=== PATIENT | female | born 1960 | race Caucasian/White ===

== ENCOUNTER → 2019-12-30 13:08 | Outpatient (CLI) | payer BC, SELFPAY ==
--- NOTE | ~2019-12-30 | DEXA_ITS ---
Bone Density Report Name: Pattie Horton Age: 59 Sex: Female Ethnicity: White Date of : 1960 Indication: postmenopausal; screening for osteoporosis; prior fracture; hysterectomy; Referring Provider: ALEXANDRE OAKES Study: Bone densitometry was performed. Exam Date: December 30, 2019 Accession number: [id number] Bone Density: Region BMD T-score Z-score Classification AP Spine (L1-L4) 0.799 -2.3 -0.7 Osteopenia Femoral Neck (Left) 0.719 -1.2 0.2 Osteopenia Total Hip (Left) 0.884 -0.5 0.6 Normal Femoral Neck (Right) 0.691 -1.4 -0.1 Osteopenia Total Hip (Right) 0.782 -1.3 -0.3 Osteopenia Total Hip Mean 0.833 -0.9 0.2 Normal World Health Organization criteria for BMD impression classify patients as: Normal (T-score at or above -1.0), Osteopenia (T-score between -1.0 and -2.5), or Osteoporosis (T-score at or below -2.5). 10-year Fracture Risk(1): Major Osteoporotic Fracture 14% Hip Fracture 1.2% Reported Risk Factors: [place] (), Neck BMD=0.691, BMI=25.4, previous fracture (1) FRAX(R) Version 3.08. Fracture probability calculated for an untreated patient. Fracture probability may be lower if the patient has received treatment. Clinical Information Provided by Patient: Has had a low trauma fracture Has used the following medications: Vitamin D Has the following medical conditions: Hysterectomy Patient maximum height was 70 Menopause Age: 45 Onset of menses at age 13 Number of children 4 Impression: The patient has low bone mass, based on the Total Spine T-score. The patient has an estimated ten-year risk of hip fracture of 1.2% and an estimated ten-year risk of major fracture of 14%, based on the WHO FRAX algorithm. The patient has risk factors, including: previous fracture. Discussion: BONE DENSITY IS LOW AT ONE OR MORE SKELETAL SITES. This patient's lowest T-score is low at one or more skeletal sites. It meets the World Health Organization's (WHO) criteria for ?low bone mass? (T-score between -1.0 and -2.5). The patient's 10-year risk of fracture as calculated by FRAX is less than the threshold where pharmacological therapy is recommended by the National Osteoporosis Foundation (NOF). However, all treatment decisions require clinical judgment and consideration of individual patient factors, including patient preferences, comorbidities, previous drug use, risk factors not captured in the FRAX model (e.g., frailty, falls, vitamin D deficiency, increased bone turnover, interval significant decline in bone density) and possible under or overestimation of fracture risk by FRAX. The patient should follow a healthful lifestyle (good nutrition with adequate calcium and vitamin D, and appropriate weight-bearing exercise). Follow-Up: Consider repeating this study in 2 to 3 years to reas
== END ==
PROVIDERS: PCP Family Medicine; Visit Provider Family Medicine
DX: Z78.0 Asymptomatic menopausal state (principal); M85.88 Other specified disorders of bone density and structure, other site; M85.852 Other specified disorders of bone density and structure, left thigh; M85.851 Other specified disorders of bone density and structure, right thigh
CPT/HCPCS: 77080

== ENCOUNTER → 2023-09-05 15:18 | Outpatient (CLI) | payer MEDICARE, OTHER, SELFPAY ==
--- NOTE | ~2023-09-05 | XR_ITS ---
EXAMINATION: XR foot LT min 3V DATE: 09/05/2023 15:34 INDICATION: Left foot pain and swelling. Fall. TECHNIQUE: 4 views of left foot were obtained. COMPARISON: None. FINDINGS: There is lateral subluxation of second metatarsal with respect to intermediate cuneiform, c onsistent with Lisfranc ligament tear. There is a displaced fracture of dorsal distal aspect of cuboi d. There is a nondisplaced fracture of base of fourth metatarsal. There is mild osteoarthritis of fir st metatarsophalangeal joint and some of the interphalangeal joints. IMPRESSION: 1. Lisfranc joint subluxation with fractures of cuboid and fourth metatarsal. Reviewed, dictated and finalized at location E. [employer] PROFESSION[employer]
== END ==
PROVIDERS: PCP Family Medicine; Visit Provider Family Medicine
DX: S92.342A Displaced fracture of fourth metatarsal bone, left foot, initial encounter for closed fracture (principal); W19.XXXA Unspecified fall, initial encounter
CPT/HCPCS: 73630

== ENCOUNTER → 2023-09-10 12:47 | Outpatient (CLI) | payer MEDICARE, OTHER, SELFPAY ==
--- NOTE | ~2023-09-10 | MR_ITS ---
EXAMINATION: MR foot LT wo con DATE: 09/10/2023 13:48 INDICATION: Tenderness at the tarsal bones with possible Lisfranc injury. TECHNIQUE: Magnetic resonance imaging (MRI) of the left fore/mid foot was performed without intraveno us contrast. Sequences included sagittal T1-weighted FSE, sagittal fluid sensitive FSE STIR, coronal PD-weighted FS FSE, coronal T1-weighted FSE, axial PD-weighted FS FSE, and axial PD-weighted FSE. COMPARISON: Radiograph dated 09/05/2023 FINDINGS: There is a tear of the dorsal and plantar components of the Lisfranc ligament complex. There is assoc iated small nondisplaced avulsion fracture along the medial cuneiform footplate of the dorsal compone nt of the ligament. There are some mild marrow edema without discrete fracture likely representing a bone contusion along the lateral margin of the base of the first metatarsal. There are additional non displaced intra-articular fractures at the bases of the third and fourth metatarsals along the dorsal margin of the distal articular surface of the middle cuneiform and extending across the lateral cune iform deep to the articular cortex. Additional marrow edema without definitive fracture consistent wi th bone contusion along the dorsolateral margin of the distal articular surface of the cuboid. Bone a lignment remains near-anatomic with no significant subluxation at the tarsal metatarsal joints. Visua lized portions of the flexor and extensor tendons are normal. The collateral ligament complex at the metatarsophalangeal and interphalangeal joints are normal. There is subcutaneous edema extending over the dorsum of the forefoot. Mild osteoarthritis of the first metatarsophalangeal joint and a few of the interphalangeal joints. IMPRESSION: 1. Lisfranc injury with disruption of the dorsal plantar components of the Lisfranc ligament complex and bone contusions or nondisplaced fractures involving several of the tarsal bones in to the base of the metatarsals as detailed above. Alignment remains near-anatomic. Reviewed, dictated and finalized at location A. T SORTER IMPRESSION: 1. Lisfranc injury with disruption of the dorsal plantar components of the Lisf ranc ligament complex and bone contusions or nondisplaced fractures involving s everal of the tarsal bones in to the base of the metatarsals as detailed above. Alignment remains near-anatomic.
== END ==
PROVIDERS: Visit Provider Family Medicine
DX: S93.325A Dislocation of tarsometatarsal joint of left foot, initial encounter (principal)
CPT/HCPCS: 73718

== ENCOUNTER 2025-03-16 12:03 | Outpatient (CLI) | payer MEDICARE, SELFPAY ==
--- NOTE | ~2025-03-16 | MM_ITS ---
EXAMINATION: MM screening karina BI w melisa HISTORY: Screening TECHNIQUE: Craniocaudal and mediolateral oblique 3-D tomosynthesis images were obtained and synthetic 2-D images were generated. CAD analysis was submitted and interpreted. COMPARISON: 12/01/2011 BREAST PARENCHYMAL COMPOSITION: Not dense: There are scattered areas of fibroglandular density. FINDINGS: There is no evidence of suspicious mass, calcification, or architectural distortion to sugg est malignancy in either breast. There has been no suspicious interval change. IMPRESSION: 1. No mammographic evidence of malignancy. 2. Recommend routine screening mammography in one year. BI-RADS Category 1: Negative Reviewed, dictated and finalized at location B.
--- OUTSIDE RECORDS SUMMARY | 2025-03-16 12:12 | XMS_ITS | Clinical Summary ---
Author Organization [facility] Address [address] [place] [address] Care Team Providers Care Doll Wigs Hackler Name Role Phone Neelima Zaman MD Primary Care Provider [phone] Source Comments [facility],non-owned Affiliates and Associated Physician Practices is amultiple site organization consisting of ambulatory clinics and hospital sitesin [place], [place], [place] and [place]. This disclosure is being madepursuant to the Care Everywhere program and may not contain all information available regarding this patient. Last updated 18.[facility] Allergies No known active allergies Medications * Be aware that medications may not be up to date on this document. Alwaysverify current medications with the patient. RESTASIS 0.05 % ophthalmic suspension 9 Active levothyroxine (SYNTHROID) 75 MCG tablet 9 Active spironolactone (ALDACTONE) 50 MG tablet 0 Active erenumab-aooe (AIMOVIG) 140 MG/ML auto injector pen Inject 140 mg subcutaneously 9 Active Aloe Vera 25 MG takign once a day Ac tive vitamin D, ergocalciferol , (DRISDOL) 1.25 MG (61832 UT) capsule TK ONE C PO ONCE A WK 8 Active pyridostigmine (MESTINON) 60 MG tablet TAKE 1 TABLET BY MOUTH THREE TIMES DAILY. START WITH 1 TABLET A DAY TO EVALUATE GI SYMPTOMS. 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 (F LUZONE; FLULAVAL; FLUARIX; AFLURIA QUADRIVALENT; 6MO+), 0.5 ML (IIV4) 08/04/2019,08/01/2018 Zoster Hzv Vacc Recombinant Inj Im 06/13/2019, Family History Medical History Relation Name Comments Cancer - Lung Mother Multiple Sclerosis Sister Relation Name Status Comments Mother Sister Social History Tobacco Use Types Packs/Day Years Used Date Smoking Tobacco: Never Smokeless Tobacco: Never Alcohol Use Standard Drinks/Week Comments Yes 0 (1 standard drink = 0.6 oz pur e alcohol) AUDIT-C Answer Date Recorded Frequency of Alcohol Consumption 2-3 times a wee k 12/16/2019 Average Number of Drinks 1 or 2 020 Frequency of Binge Drinking Not on file 11/29 Comments Unknown Sex and Gender Information Value Date Recorded Sex Assigned at Not on file Legal Sex Female 7:35 PM CORN GRINDER Gender Identity Not on file Sexual Orientation Not on file Last Filed Vital Signs Vital Sign Reading Time Taken Comments Blood Pressure 118/69 12/23/2019 3:06 PM CORN GRINDER Pulse 64 12/23/2019 3:06 PM CORN GRINDER Temperature - - Respiratory Rate - - Oxygen Saturation 96% 12/23/2019 3:06 PM CORN GRINDER Inhaled Oxygen Concentration - - Weight 79.4 kg (175 lb 1.9 oz) 12/23/2019 3:06 P M CORN GRINDER Height 177.8 cm (5' 10 ) 12/23/2019 3:06 PM CORN GRINDER Body Mass Index 25.13 12/23/2019 3:06 PM CORN GRINDER Plan of Treatment Health Maintenance Due Date Last Done Comments BONE DENSITY TESTING 1960 COLOGUARD (AGES 45-75) - COLON CA SCREENING 1960 COLON MONITORING 1960 COLONOSCOPY - COLON CA SCREENING 1960 CT COLONOGRAPHY - COLON CA SCREENING 1960 Colorectal Cancer Screening 1960 FIT - COLON CA SCREENING 1960 FLEX SIG - COLON CA SCREENING 1960 LIPID TESTING 1960 MAMMOGRAM 1960 HEPATITIS C SCREENING 06/04/1976 DTAP/TDAP/TD VACCINES (1 - Tdap) 1977 PNEUMOCOCCAL VACCINE 50+ (1 of 1 - PCV) 2008 SCREENING FOR DIABETES 12/23/2019 COVID-19 VACCINE (1 - season) 2024 DEPRESSION SCREENING 10/29/2024 INFLUENZA VACCINE (Season Ended) 2025 08/04/2019, 08/04/2019, 08/01/2018, Additional history exists Respiratory Syncytial Virus (RSV) Vaccine Pt: or over 60 yrs (1 - 1-dose 75+ series) 2033 ZOSTER VACCINE Completed 06/13/2019, 04/04/2019 HEPATITIS B VACCINE Aged Out No longe r eligible based on patient's age to complete this topic HIB VACCINE Aged Out No longer eligi ble based on patient's age to complete this topic HPV VACCINE Aged Out No longer eligi ble based on patient's age to complete this topic MENINGOCOCCAL (Group B) VACCINE SHARED DECISION-MAKING Aged Out No longer eligible based on patient's age to complete this topic MENINGOCOCCAL GROUPS A/C/Y/W VACCINE Aged Out No longer eligible based on patient's age to complete this topic Insurance ANTH ANTHEM Care Teams Doll Wigs Hackler Relationship Specialty Start Date End Date Neelima Zaman MD [address] [place] [address] PCP - General 12/23/19
--- OUTSIDE RECORDS SUMMARY | 2025-03-16 12:12 | XMS_ITS | Clinical Summary ---
Author Organization [facility] Address [address] [place] [id number] Care Team Providers Care Welt Beater Name Role Phone None, Provider MD Primary Care Provider Unavaila ble Allergies No known active allergies Medications No known medications Social History Tobacco Use Types Packs/Day Years Used Date Smoking Tobacco: Never Smokeless Tobacco: Never Tobacco Cessation:Counseling Given: Not Answered Alcohol Use Standard Drinks/Week Comments Yes 3.3 (1 standard drink = 0.6 oz p ure alcohol) Comments Unknown Sex and Gender Information Value Date Recorded Sex Assigned at Not on file Legal Sex Female 2:29 PM CDT Gender Identity Not on file Sexual Orientation Not on file Last Filed Vital Signs Vital Sign Reading Time Taken Comments Blood Pressure 106/73 08/31/2023 2:35 PM CDT Pulse 81 08/31/2023 2:35 PM CDT Temperature 36.6 C (97.8 F) 08/31/2023 2:35 PM CDT Respiratory Rate 18 08/31/2023 2:35 PM CDT Oxygen Saturation 100% 08/31/2023 2:35 PM CDT Inhaled Oxygen Concentration - - Weight 81.6 kg (180 lb) 08/31/2023 2:35 PM CDT Height 180.3 cm (5' 11 ) 08/31/2023 2:35 PM CDT Body Mass Index 25.1 08/31/2023 2:35 PM CDT Plan of Treatment Health Maintenance Due Date Last Done Comments Colorectal Cancer Screening Colonoscopy (10 Years) 1960 Hepatitis C 1976 DTaP, Tdap and Td Vaccines (1 - Tdap) 1977 Mammogram Screening 1998 Annual Medicare Wellness Visit 2023 Dexa Scan (General) 2023 COVID-19 Vaccine ( season) 2024 06/20/2023, 07/05/2022, 03/14/2022, Additional history exists Zoster Vaccines Completed 06/13/2019, 04/04/2019 Pneumococcal Vaccine: 50+ Years Completed 06/20/2023 RSV Immunization or 60+ Years Completed 06/20/2023 Meningococcal B Vaccine Aged Out No l onger eligible based on patient's age to complete this topic Meningococcal Vaccine Aged Out No mikel ander eligible based on patient's age to complete this topic RSV Immunizations Under 20 Months Aged Out No longer eligible based on patient's age to complete this topic Insurance MEDICARE AET Care Teams Welt Beater Relationship Specialty Start Date End Date None, Provider, MD PCP - General UNKNOWN PHYSICIAN SPECIALTY 08/31/23
--- OUTSIDE RECORDS SUMMARY | 2025-03-16 12:12 | XMS_ITS | Encounter Summary ---
Author Organization [facility] Address [address] [place] [address] Phone Care Team Providers Care Runway Model Name Role Phone Neelima Zaman MD Primary Care Provider + Davie Mendoza MD Unavailable [phone] Encounter Details Date Type Department Care Team (Latest Contact Info) Description 12/30/2019 Orders Only [facility] Scanning, Provider Social History Tobacco Use Types Packs/Day Years Used Date Smoking Tobacco: Never Smokeless Tobacco: Never Alcohol Use Standard Drinks/Week Comments No 0 (1 standard drink = 0.6 oz pur e alcohol) Comments Unknown Sex and Gender Information Value Date Recorded Sex Assigned at Not on file Legal Sex Female 6:40 AM TELEPATHIST Gender Identity Not on file Sexual Orientation Not on file 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 Not on file Not on file Not on file documented as of this encounter Plan of Treatment Not on file documented as of this encounter Procedures Procedure Name Priority Date/Time Associated Diagnosis Comments SCAN - RADIOLOGY/IMAGING 12/30/2019 documented in this encounter Results * SCAN - RADIOLOGY/IMAGING (12/30/2019) Anatomical Region Laterality Modality Other us Provider Scanning Final Result documented in this encounter Visit Diagnoses Not on filedocumented in this encounter Additional Health Concerns Infection Onset Date Last Indicated Resolved Time Exposure, COVID-19 Comment:Added automatically based on COVID19 lab answers indicating exposure risk 04/05/2022 04/05/2022 04/15/2022 3:06 AM C DT COVID: Suspected 04/05/2022 04/05/2022 04/05/2022 3:43 PM CDT documented as of this encounter Care Teams Runway Model Relationship Specialty Start Date End Date Neelima Zaman MD PCP - General 09/25/17 Davie Mendoza MD Surgeon Ophthalmology 09/01/20 documented as of this encounter
--- OUTSIDE RECORDS SUMMARY | 2025-03-16 12:12 | XMS_ITS | Encounter Summary ---
Author Organization [facility] Address [address] [place] [address] Care Team Providers Care Rayon Winder Name Role Phone Neelima Zaman MD Primary Care Provider [phone] Encounter Details Date Type Department Care Team (Late st Contact Info) Description 12/25/2019 Telephone [facility] [address] [place] [address] Vy Jolley MD No information available Social History Tobacco Use Types Packs/Day Years [...] on file Legal Sex Female 7:35 PM RESIDENT SURGEON Gender Identity Not on file Sexual Orientation Not on file documented as of this encounter Miscellaneous Notes * Telephone Encounter - Vy Jolley MD - 12/25/2019 8:49 AM CST Spoke with patient about negative antibody testing. She will see Dr Maharaj for EMG Vy Jolley MD DENT SURGEON documented in this encounter Plan of Treatment Not on file documented as of this encounter Visit Diagnoses Not on filedocumented in this encounter Care Teams Rayon Winder Relationship Specialty Start Date End Date Neelima Zaman MD [address] [place] [id number] PCP - General 12/23/19 documented as of this encounter
--- OUTSIDE RECORDS SUMMARY | 2025-03-16 12:12 | XMS_ITS | Clinical Summary ---
Author Organization [facility] Address [address] [place] [address] Care Team Providers Care Administrative Intern Name Role Phone Neelima Zaman MD Primary Care Provider + Davie Mendoza MD Unavailable [phone] Allergies Active Allergy Reactions Criticality Noted Date Comments Codeine Headache,Nausea only Low Medications aloe vera 25 mg capsuleIndication s:constipation/nair pplement Take 25 mg by mouth every morning Active turmeric root extract 500 mg capsuleIndication s:supplement Take 2 tablets by mouth every morning Stopped 09/10 for DOS 09/14 Active UNABLE TO FIND Take 3 each by mouth regulatory attorney before breakfast Congaplex ; stopped 09/10 for surgery Active ferrous sulfate elixir 220 mg/5 mL (44 mg/5 mL of elemental iron)Indications: Iron Deficiency Anemia Take 5 mL (220 mg total) by mouth every morning Active cholecalciferol (Vitamin D3) 2000 unit capsuleIndication s:Vitamin D Deficiency Take 1 capsule (2,000 Units total) by mouth every morning Active aspirin 325 mg enteric coated tablet Take 1 tablet (325 mg total) by mouth daily Post operatively for DVT prophylaxis 30 tablet 023 Active acetaminophen (TYLENOL) 500 mg tablet Take 2 tablets (1,000 mg total) by mouth every 8 (eight) hours as needed for pain 60 tablet 023 Active indomethacin (INDOCIN) 25 mg capsuleIndication s:Intractable chronic migraine with aura and without status migrainosus 1-2 caps by mouth every 8 hrs as needed for migraine. Take with food. 180 capsule 1 024 Active bimatoprost (LATISSE) 0.03 % ophthalmic solution APPLY 1 DROP TO UPPER EYELID MARGIN EVERY DAY Active UNABLE TO FIND Biost Made by Standard Process Calcifood Made by Standard Process Active Restasis 0.05 % ophthalmic emulsion INSTILL 1 DROP INTO BOTH EYES IN THE MORNING 90 mL 3 Active BUPROPION HCL ORAL Take by mouth Active naltrexone HCl (NALTREXONE ORAL) Take by mouth Active metFORMIN (GLUCOPHAGE) 500 mg tablet Take 1 tablet (500 mg total) by mouth daily Active atogepant (Qulipta) 60 mg tabletIndications :Intractable chronic migraine with aura and without status migrainosus Take 1 tablet by mouth daily 90 tablet 1 025 Active ubrogepant (Ubrelvy) 100 mg tabletIndications :Intractable chronic migraine with aura and without status migrainosus Take 1 tablet (100 mg total) by mouth once as needed for migraine May repeat dose once in 2 hours if no relief. Do not exceed 2 doses in 24 hours. 30 tablet 1 025 2025 Active Synthroid 88 mcg tabletIndications :Postablative hypothyroidism TAKE 1 TABLET BY MOUTH EARLY IN THE MORNING BEFORE BREAKFAST 100 tablet 1 025 Active Synthroid 88 mcg tabletIndications :Postablative hypothyroidism Take 1 tablet (88 mcg total) by mouth regulatory attorney before breakfast 90 tablet 1 025 2024 Discontinued Active Problems Problem Noted Date Diagnosed Date Age-related osteoporosis wit hout current pathological fracture 04/03/2024 Dislocation of tarsometatarsal joint of left angelica t 09/10/2023 Nuclear sclerotic cataract of both eyes 01/19/20 Assessment & Plan (05/04/2023 11:02 AM CDT): Stable. Observe. Assessment & Plan (01/18/2023 8:38 AM CDT): Mild. Stable. Observe. PVD (posterior vitreous detachment), right eye 0 11/22/2022 Assessment & Plan (05/04/2023 11:02 AM CDT): Repeat DFE annually. Assessment & Plan (01/18/2023 8:38 AM CDT): No retinal holes/tears/RDs x 360 on MANAGER OF HOUSEKEEPING today. The signs and symptoms of retinal detachment were reviewed. Advised urgent evaluation with any onset. F/u annually., sooner prn. Assessment & Plan (11/22/2022 3:31 PM LABEL MAKER): New PVD OD, symptoms started 1 week ago. No retinal holes/tears/RDs x 360 on MANAGER OF HOU[employer] today. The signs and symptoms of retinal detachment were reviewed. Advised urgent evaluation with any onset. F/u DFE in 6-8 weeks. Diagnostic refraction prior to DFE that day. Weight gain 09/17/2022 Assessment & Plan (09/17/2022 10:41 AM LABEL MAKER): Assess TSH as above. Check 1 mg ONDST to r/o Kirsten's. Recommend calorie tracking - aim for 1200 kcal per day. 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 MG and Graves' Dz ruled out in the past. F/u annually, sooner prn. Assessment & Plan (04/27/2022 3:11 PM CDT): Subjective improvement with an additional 1^ BU over right eye. Update SRx to reflect this. MG and Graves ruled out in the past. Secondary SRx for near work. F/u annually, sooner prn. Assessment & Plan (07/15/2020 5:37 PM CDT): Subjective improvement with 0.5^. History of Graves disease. Assessment & Plan (01/05/2020 2:35 PM CDT): Presentation is somewhat unusual for Graves' eye disease, however, will check TSI and refer to Dr. Mendoza for further evaluation. Hypertropia of left eye 12/16/2019 Assessment & Plan (01/18/2023 8:38 AM CDT): Stable. Observe. Assessment & Plan (04/27/2022 3:10 PM CDT): Stable. Observe. Ptosis of right eyelid 08/04/2019 Varicose veins of bilateral lower extremities wi th pain 06/24/2019 Assessment & Plan (09/19/2019 1:56 PM LABEL MAKER): Impression: Patient continues do well status post EVLT of her right great saphenous vein and right accessory vein. Her surgical wounds have healed well. She has minimal residual ecchymosis and edema. She still has painful varicosities to her left lower extremity despite utilizing compression therapy daily. Her varicosities are very disruptive and painful and limit her and her daily activities. She would benefit from a EVLT of her left lower extremity with stab phlebectomies. Plan: Schedule left lower extremity EVLT with stab phlebectomy to be performed over the next 1-2 months. Recommend ongoing compression therapy daily. Assessment & Plan (07/07/2019 2:24 PM CDT): Impression: Worsening painful varicose veins to both lower extremities right greater than left. Patient has history of bilateral lower extremity ablations and sclerotherapy. She has failed conservative measures including daily compression therapy. Patient would benefit from bilateral staged great saphenous vein endovenous laser ablation therapy beginning with her right leg. The procedure and associated risks were discussed with the patient in detail in which he acknowledged and agreed to proceed. Plan: Schedule elective staged bilateral great saphenous veins endovenous laser ablation therapy with stab phlebectomies beginning with her right leg. Assessment & Plan (06/24/2019 1:53 PM CDT): 59-year-old male with longstanding history of painful varicose veins of the bilateral lower extremity right leg being worse than the left. She has tried and failed for many years knee-high compression therapy 20 30 mm of mercury with now minimal to no relief. Suspect underlying venous insufficiency will evaluate with reflux duplex follow-up 2 weeks. Continue compression therapy and leg elevation and exercise Postablative hypothyroidism 10/30/2018 Assessment & Plan (03/28/2023 4:54 PM CDT): Reassess TSH today very slightly low but has previously been normal on same dose. Repeat in 3 months. Assessment & Plan (09/17/2022 10:40 AM LABEL MAKER): Continue Levothyroxine 88 mcg. Recheck TSH in setting of weight gain. Assessment & Plan (07/07/2020 3:39 PM CDT): Etiology secondary to Grave's disease status-post RAIA (20.8 mCi of I-131 on 05/30/2018). Reports some active symptoms: fatigue, inability to lose weight (no recent weight gain) Thyroid exam shows no enlargement, masses, nodules, or tenderness Physical exam shows no bradycardia, non-pitting edema, or delayed relaxation of tendon reflexes No evidence of hyponatremia on recent basic metabolic panel Latest TSH 0.68 (12/31/2019) Antibodies: TSI positive Recommendations: Continue Levothyroxine 88 mcg qAM (60 min before first meal); avoid other medications inhibiting absorption Repeat thyroid function studies (TSH and Free T4) annually Assessment & Plan (01/05/2020 2:34 PM CDT): She is clinically and biochemically euthyroid. Continue levothyroxine 88 mcg daily. Assessment & Plan (10/30/2018 11:04 PM LABEL MAKER): She is on 75 mcg 5 days per week (when started on daily dosing, she was hyperthyroid). She is now frankly hypothyroid. Will have her start taking levothyroxine 75 mcg daily and recheck levels in 6 weeks. Intractable chronic migraine with aura and without status migrainosus 10/30/2018 Assessment & Plan (10/30/2018 10:58 PM LABEL MAKER): She notes that she has had headaches for many years, but feels they are now more frequent. They had improved after sinus surgery in the past. There are some associated migraine symptoms though worsening while recumbent is not typical of this. She does not have significant risk factors for sleep apnea. I have referred her to Dr. Ernst for further evaluation. Graves disease 04/26/2018 Hyperparathyroidism 09/06/2017 Assessment & Plan (03/28/2023 4:54 PM CDT): Reassess PTH, calcium and 25 OHD level today. PTH elevated, calcium upper normal, phosphorus slightly low. Possible early normocalcemic primary hyperparathyroidism. Does not currently meet surgical criteria. Assessment & Plan (09/17/2022 10:40 AM LABEL MAKER): Reassess calcium, PTH. Assessment & Plan (04/26/2018 10:12 PM CDT): Her renal function and 25OHD levels are WNL. Her total calcium is normal, but ionized is elevated. 24 hour urine calcium at the upper limit of normal. Will monitor serum calcium and confirm osteoporosis. Low bone mass 09/05/2017 Assessment & Plan (03/28/2023 4:42 PM CDT): Will repeat DEXA next year to determine liner roll changer time. If need to restart bisphosphonate, would recommend reclast. Assessment & Plan (09/17/2022 10:41 AM LABEL MAKER): Repeat DXA. Assessment & Plan (07/07/2020 3:47 PM CDT): Post-menopausal 60 year-old female with osteopenia on DEXA (12/30/2019) with FRAX score <3% hip or <20% major Intolerant to bisphosphonates (severe nausea), normal 25-hydroxyvitamin D level, elevated calcium and PTH in past with concern for possible primary hyperparathyroidism (negative work-up) Plan: 1) Check PTH and renal function 2) Repeat DEXA scan every 2 years Assessment & Plan (01/05/2020 2:43 PM CDT): FRAX score not in range for anti-resorptive therapy. Patient has also had bisphosphonates in the past with bad reaction. Continue Calcium/D. 25OHD in good range. Monitor for primary hyperparathyroidism. Her PTH is upper limit of normal and calcium is 0.1 above normal range. Assessment & Plan (04/26/2018 9:58 PM CDT): Will try to get records of DXA and address other alternatives to oral bisphosphonates for treatment. Will treat hyperthyroidism and hyperparathyroidism. Resolved Problems Problem Noted Date Diagnosed Date Resolved Date Ptosis of left eyelid 07/29/20202022 Assessment & Plan (04/27/2022 3:10 PM CDT): S/p ptosis repair by Dr. Mendoza. Observe. Hyperthyroidism 04/26/2018 10/30/2018 Assessment & Plan (04/26/2018 10:11 PM CDT): Will refer for ESCOBEDO ablation after confirming there are no nodules requiring biopsy with thyroid US. Will also use neck US to assess for parathyroid adenoma given possibility of mild primary hyperparathyroidism. If parathyroid adenoma seen, would discuss thyroidectomy and parathyroidectomy with endocrine surgery in lieu of ESCOBEDO. She will stop methimazole 3 days prior to ESCOBEDO. After ESCOBEDO, will check FT4, FT3, TSH monthly to assess for hypothyroidism and then begin LT4. Encounters Date Type Department Care Team Description 02/26/2025 Orders Only [facility] [address] [facility] 5th [place] [address] [place] [address] Elie Banda RN Postablative hypothyroidism (Primary Dx); Low bone mass; Hyperparathyroidism; Fatigue, unspecified type 12/22/2024 Telephone [facility] [address] [place] [address] Tammy Blount PA Ubrelbob MENDEZ from Last 3 Months Immunizations Immunization Administration Dates Next Due Influenza, Quadrivalent, Spl it, Preservative Free, Intramuscular 08/04/2019,08/01/2018 Influenza, Trivalent, Preservative Free, Intramu scular 09/05/2017,09/11/2016 ZOSTER Recombinant 06/13/2019,04/04/2019 Surgical History Surgery Date Site/Laterality Comments HYSTERECTOMY 10/29/2004 - 10/28/2005 Total Hysterectomy - (Added by TW Conv) INCONTINENCE SURGERY 10/29/2004 - 10/28/2005 TONSILLECTOMY 10/29/1973 - 10/28/1974 Bilateral APPENDECTOMY 10/29/1973 - 10/28/1974 SINUS SURGERY 10/29/2017 - 10/28/2018 VARICOSE VEIN SURGERY 08/15/2019 Right EVLT VARICOSE VEIN SURGERY 10/17/2019 Left gsv, accessory gsv, phlebs LASIK 10/29/1999 - 10/28/2000 Bilateral BLEPHAROPTOSIS REPAIR 10/29/2018 - 10/28/2019 Right BLEPHAROPTOSIS REPAIR 09/01/2020 Left Left ptosis repair ANGIO SELECTIVE CAROTID BUSINESS RULES DEVELOPER LEFT 10/11/2021 Left DILATION AND CURETTAGE OF UTERUS 10/29/2001 - 10/28/2002 multiple COLONOSCOPY 2007 & 2017 CERVICAL CONIZATION W/ LASER mid Medical History Medical History Date Comments Hyperthyroidism Bleeding tendency denies known b leeding disorders. reports bleed a lot after in office mole removal- denies excessive bleeding with past surgeries. Thyroid disease Arthritis History of cervical dysplasia h/ o Cervical dysplasia s/p cervical conization mid Migraines Sleep difficulties Family History Medical History Relation Name Comments Arthritis Brother 1 Don Multiple sclerosis Brother 1 Don Arthritis Brother 2 Leonardo Hypertension Brother 2 Leonardo Osteoarthritis Brother 2 Leonardo Sleep apnea Brother 2 Leonardo Autoimmune disease Brother 3 Keith Arthritis Father Aki Cancer Father Aki Family history of malignant neoplasm - father:leukemia; sister: breast cancer (Added by TW Conv) Heart disease Father Aki Family history of cardiac disorder - (Added by TW Conv) Hypertension Father Aki Family history of hypertension - (Added by TW Conv) Osteoarthritis Father Aki Snoring Father Aki Anesthesia problems Mother Rahel Per pt, h/o delayed emergence after magdy Hearing loss Mother Rahel Hyperlipidemia Mother Rahel Family histor y of hyperlipidemia - (Added by TW Conv) Hypertension Mother Rahel Family history of hypertension - (Added by TW Conv) Memory loss Mother Rahel Miscarriages / Stillbirths Mother Rahel Stroke Mother Rahel Family history of cerebrovascular accident (CVA) - (Added by TW Conv) Vision loss Mother Rahel Migraines Other daughter Hypertension Sister 1 Fatuma Family history of hypertension - (Added by TW Conv) Snoring Sister 1 Fatuma Autoimmune disease Sister 2 Suse Cancer Sister 2 Susradha Family history of malignant neoplasm - father:leukemia; sister: breast cancer (Added by TW Conv) Miscarriages / Stillbirths Sister 3 Sara Relation Name Status Comments Brother 1 Don Brother 2 Leonardo Brother 3 Keith Father Aki Mother Rahel Other daughter Sister 1 Fatuma Sister 2 Ottoniel Sister 3 Sara Social History Tobacco Use Types Packs/Day Years Used Date Smoking Tobacco: Never Smokeless Tobacco: Never Tobacco Cessation:Counseling Given: Not Answered Alcohol Use Standard Drinks/Week Comments Yes 0 (1 standard drink = 0.6 oz pur e alcohol) 5 drinks per week AUDIT-C Answer Date Recorded Q1: How often do you have a drink containing alc ohol? 2-3 times a week 07/08/2024 Q2: How many drinks containi ng alcohol do you have on a typical day when you are drinking? 1 or 2 07/08/2024 Q3: How often do you have si x or more drinks on one occasion? Never 07/08/2024 Hunger Vital Sign Answer Date Recorded Within the past 12 months, y ou worried that your food would run out before you got the money to buy more. Never true 07/08/20 24 Within the past 12 months, t he food you bought just didn't last and you didn't have money to get more. Never true 07/08/2024 Personal Safety Answer Date Recorded Have you ever been in or are you currently in a harmful physical or emotional relationship or is someone making you feel afraid or unsafe? 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 Not on file Not on file Obstetrics History Last Filed Vital Signs Vital Sign Reading Time Taken Comments Blood Pressure 103/63 09/29/2024 1:06 PM LABEL MAKER Pulse 85 09/29/2024 1:06 PM LABEL MAKER Temperature 36.3 C (97.4 F) 09/29/2024 1:06 PM LABEL MAKER Respiratory Rate 14 07/08/2024 7:47 AM CDT Oxygen Saturation 96% 09/29/2024 1:06 PM LABEL MAKER Inhaled Oxygen Concentration - - Weight 87.8 kg (193 lb 8 oz) 09/29/2024 1:06 PM LABEL MAKER Height 177.8 cm (5' 10 ) 09/29/2024 1:06 PM LABEL MAKER Body Mass Index 27.76 09/29/2024 1:06 PM LABEL MAKER Plan of Treatment Health Maintenance Due Date Last Done Comments Breast Cancer Screening-Mammogram 1960 Colon Cancer Screening-Colonoscopy 1960 Depression Screening 1960 Hepatitis C Screening 1960 DTaP/Tdap/Td Vaccine (1 - Tdap) 1969 Hepatitis B Screening 1976 Pneumococcal vaccine 65+ (1 of 1 - PCV) 2008 Well Visit 65+ 2023 Fall Risk Assessment 09/14/2024 09/14/2023, 10/03/20 21 Influenza Vaccine (Season Ended) 2025 08/04/2019, 08/01/2018, 09/05/2017, Additional history exists Osteoporosis Screening-Bone Density Scan 03/18/2026 03/18/2024, 10/02/2022 Zoster Vaccine Completed 06/13/2019, 04/04/2019 Goals Goal Patient Goal Type Associated Problems Recent Progress Patient-Stated? Author CCM Chronic Pain Care Plan Chronic Care Management Pattie Watters, JOHN Note: Problem: Chronic Pain Goals: 1. Minimize further functional decline 2. Maximize quality of life 3. Control pain Strategies: - Activity/exercise program recommendation - Conservative stepwise pain medicine strategy with multi-disciplinary approach - Recommend healthy lifestyle strategies and compensatory methods as needed Medical Devices Implanted Type Area Doctor Of Osteopathy Device Identifier Shelf Expiration Date Model / Serial / Lot [employer] Graft Bone Filler Cortical Cancellous Cyro Freezer Arthrocell 2.5cc Putty Abs-2009-02 - [id number] Implanted:Qty: 1 on 09/14/2023 by Pieter Dumont MD at [facility] [place] Left: Foot [employer] 10/03/2025 ABS-2008-0 2 / / [id number] Description: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 - will be tissue tracked on sunday [employer] Screw Bone Medline Unite L34mm Od3.5mm Nonsterile [id number] - [id number] Implanted:Qty: 1 on 09/14/2023 by Pieter Dumont MD at [facility] [place] Left: Foot [employer] [id number] / / [employer] Screw Bone Medline Unite L38mm Od3.5mm Nonsterile [id number] - [id number] Implanted:Qty: 1 on 09/14/2023 by Pieter Dumont MD at [facility] [place] Left: Foot Medline [employer] [id number] / / Explanted Type Area Doctor Of Osteopathy Device Identifier Shelf Expiration Date Model / Serial / Lot [employer] [place] .062in 9in Trocar Point One End Orthopedic Wire [id number] - [id number] Explanted:Qty: 2 on 09/14/2023 by Pieter Dumont MD at [facility] [place] Left: Foot [employer] [id number] S / / Procedures Procedure Name Priority Date/Time Associated Diagnosis Comments DEXA AXIAL AND FOREARM BONE DENSITY SCAN Schedule Routine, Read Routine (OP Routine) 03/18/2024 11:34 AM CDT Hyperparathyroidis m from Last 3 Months or Most Recently Relevant to Health Maintenance Results * Dexa Axial and Forearm Bone Density Scan (03/18/2024 11:34 AM CDT) Anatomical Region Laterality Modality Wrist, Body N/A Radiographic Claribel ging Narrative 03/18/2024 4:32 PM CDT Patient Name: Pattie Horton Date of : 1960 Date of scan: 03/18/2024 Bone mineral density was performed on a Farseer Discovery Densitometer. Based on machine cross-calibration and precision studies the least significant changes of this densitometer is 0.024 g/cm2 at the spine, 0.020 g/cm2 at the total proximal femur, and 0.014g/cm2 at the forearm. HISTORY: This is a 63 y.o. postmenopausal female with a history of hyperparathyroidism, low bone mass, thyroid disease, and vitamin D deficiency. She reports that she has never smoked. She has never used smokeless tobacco. Currently on treatment with calcium, vitamin D, and thyroid hormone, previously treated with risedronate (Actonel) and ibandronate (Boniva), and current complaint of back pain and leg pain. INDICATIONS: Menopause status, history of prior left wrist fracture, vitamin D deficiency, and history of low bone mass. FINDINGS: BONE MINERAL DENSITY OF THE LUMBAR SPINE Bone Mineral Density (BMD) of the lumbar spine was measured from L1-L4 and the average density was calculated to be 0.836 gm/cm2. This corresponds to a T-score (standard deviations from the mean of young adults) of -1.9. When compared to the previous study of 10/02/2022 there has been no significant changes in bone density. BONE MINERAL DENSITY OF THE PROXIMAL FEMUR Bone Mineral Density (BMD) of the left hip total was found to be 0.802 gm/cm2. This corresponds to a T-score standard deviations from the mean of young adults of -1.1. Femoral neck is 0.659 gm/cm2 with a T-score (standard deviations from the mean of young adults) of -1.7. When compared to the previous study of 10/02/2022 there has been a -0.051 gm/cm (-5.9%) decrease in bone density that is considered significant. BONE MINERAL DENSITY OF THE FOREARM Bone Mineral density (BMD) of the right proximal 1/3 of the radius measures 0.629 gm/cm2. This corresponds to a T-score (standard deviations from the mean of young adults) of -1.1. When compared to the previous study of 10/02/2022 there has been no significant changes in bone density. A forearm bone density study was performed in addition to the routine study because of history of hyperparathyroidism. SUMMARY: Bone mineral density shows evidence of low bone mass at the lumbar spine, proximal femur, and forearm and moderately increased fracture risk (Osteopenia). There has been a significant decrease in bone density since previous measurement. ADDITIONAL COMMENTS: Postmenopausal Women and Men Over 50: Diagnostic criteria: Osteoporosis: BMD at or below -2.5 T-score; Osteopenia (low bone mass): BMD between -1.0 and -2.5 T-score. If the patient has a history of a fragility fracture, a fracture that occurred with trauma equivalent to a fall from a standing position or less, then the diagnosis is osteoporosis regardless of bone density. The history and data sections of the bone mineral density scan were prepared by Pallavi Ocampo) NAGI who is accredited by the International Society of Clinical Densitometry. The overall patient assessment and scan interpretation were performed by Fabi Costa MD who is certified by the International Society of Clinical Densitometry. [id number] Alcira Sun MD IMG DXA PROCEDURES Final Result from Last 3 Months or Most Recently Relevant to Health Maintenance Insurance UHC MEDICARE ADVANTAGE [facility] MEDICARE ADVANTAGE UHC MEDICARE ADVANTAGE Care Teams Administrative Intern Relationship Specialty Start Date End Date Neelima Zaman MD PCP - General 09/25/17 Davie Mendoza MD Surgeon Ophthalmology 09/01/20
--- OUTSIDE RECORDS SUMMARY | 2025-03-16 12:12 | XMS_ITS | Encounter Summary ---
Author Organization [facility] Healthcare Address [address] [place] [address] Care Team Providers Care Certified Histologic Technician Name Role Phone Neelima Zaman MD Primary Care Provider + Davie Mendoza MD Unavailable [phone] Encounter Details Date Type Department Care Team (Late st Contact Info) Description 10/10/2021 Telephone [facility] [address] [place] [phone] Mily Kim RN Social History Tobacco Use Types Packs/Day Years Used Date Smoking Tobacco: Never Smokeless Tobacco: Never Alcohol Use Standard Drinks/Week Comments Yes 0 (1 standard drink = 0.6 oz pur e alcohol) 5 drinks per week AUDIT-C Answer Date Recorded Q1: How often do you have a drink containing alc ohol? Monthly or less 10/11/2021 Q2: How many drinks containi ng alcohol do you have on a typical day when you are drinking? 1 or 2 10/11/2021 Q3: How often do you have si x or more drinks on one occasion? 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
--- OUTSIDE RECORDS SUMMARY | 2025-03-16 12:12 | XMS_ITS | Referral Summary ---
Author Organization [facility] Address [address] [place] [address] Care Team Providers Care Top Dyeing Machine Loader Name Role Phone Neelima Zaman MD Primary Care Provider + Davie Mendoza MD Unavailable [phone] Encounters Date Type Department Care Team Description 02/26/2025 Orders Only [facility] Metabolism and Lipid [address] [facility] 5th [place] [address] [place] [address] Elie Banda RN Postablative hypothyroidism (Primary Dx); Low bone mass; Hyperparathyroidism; Fatigue, unspecified type 12/22/2024 Telephone [facility] [address] [facility] 6th [address] [place] [address] Tammy Blount PA Ubmati MENDEZ from Last 3 Months Allergies Active Allergy Reactions Criticality Noted Date Comments Codeine Headache,Nausea only Low Medications aloe vera 25 mg capsuleIndication s:constipation/nair pplement Take 25 mg by mouth every morning Active turmeric root extract 500 mg capsuleIndication s:supplement Take 2 tablets by mouth every morning Stopped 09/10 for DOS 09/14 Active UNABLE TO FIND Take 3 each by mouth tie worker before breakfast Congaplex ; stopped 09/10 for [...] DROP TO UPPER EYELID MARGIN EVERY DAY 024 Active UNABLE TO FIND Biost Made by Standard Process Calcifood Made by Standard Process Active Restasis 0.05 % ophthalmic emulsion INSTILL 1 DROP INTO BOTH EYES IN THE MORNING 90 mL 3 024 Active BUPROPION HCL ORAL Take by mouth [...] 1 tablet (88 mcg total) by mouth tie worker before breakfast 90 tablet 1 025 2024 [...] CDT): No retinal holes/tears/RDs x 360 on DINING MANAGER today. The signs and symptoms of retinal detachment were reviewed. Advised urgent evaluation with any onset. F/u annually., sooner prn. Assessment & Plan (11/22/2022 3:31 PM VP ANCILLARY): New PVD OD, symptoms started 1 week ago. No retinal holes/tears/RDs x 360 on DINING MANAGER today. The signs and symptoms of retinal detachment were reviewed. Advised urgent evaluation with any onset. F/u DFE in 6-8 weeks. Diagnostic refraction prior to DFE that day. Weight gain 09/17/2022 Assessment & Plan (09/17/2022 10:41 AM VP ANCILLARY): Assess TSH as above. Check 1 mg ONDST to r/o Kirsten's. Recommend calorie tracking - aim for 1200 kcal per day. 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 Assessment & Plan (09/17/2022 10:40 AM VP ANCILLARY): Continue Levothyroxine 88 mcg. Recheck TSH in [...] daily. Assessment & Plan (10/30/2018 11:04 PM VP ANCILLARY): She is on 75 mcg 5 days per week (when started on daily dosing, she was hyperthyroid). She is now frankly hypothyroid. Will have her start taking levothyroxine 75 mcg daily and recheck levels in 6 weeks. Intractable chronic migraine with aura and without status migrainosus 10/30/2018 Assessment & Plan (10/30/2018 10:58 PM VP ANCILLARY): She notes that she has had headaches [...] criteria. Assessment & Plan (09/17/2022 10:40 AM VP ANCILLARY): Reassess calcium, PTH. Assessment & Plan (04/26/2018 10:12 PM CDT): Her renal function and 25OHD levels are WNL. Her total calcium is normal, but ionized is elevated. 24 hour urine calcium at the upper limit of normal. Will monitor serum calcium and confirm osteoporosis. Low bone mass 09/05/2017 Assessment & Plan (03/28/2023 4:42 PM CDT): Will repeat DEXA next year to determine change coordinator time. If need to restart bisphosphonate, would recommend reclast. Assessment & Plan (09/17/2022 10:41 AM VP ANCILLARY): Repeat DXA. Assessment & Plan (07/07/2020 3:47 [...] assess for hypothyroidism and then begin LT4. 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 on file Not on file Not on file Last Filed Vital Signs Vital Sign Reading Time Taken Comments Blood Pressure 103/63 09/29/2024 1:06 PM VP ANCILLARY Pulse 85 09/29/2024 1:06 PM VP ANCILLARY Temperature 36.3 C (97.4 F) 09/29/2024 1:06 PM VP ANCILLARY Respiratory Rate 14 07/08/2024 7:47 AM CDT Oxygen Saturation 96% 09/29/2024 1:06 PM VP ANCILLARY Inhaled Oxygen Concentration - - Weight 87.8 kg (193 lb 8 oz) 09/29/2024 1:06 PM VP ANCILLARY Height 177.8 cm (5' 10 ) 09/29/2024 1:06 PM VP ANCILLARY Body Mass Index 27.76 09/29/2024 1:06 PM VP ANCILLARY Plan of Treatment Not on file Goals Goal Patient Goal Type Associated Problems Recent Progress Patient-Stated? Author CCM Chronic Pain Care Plan Chronic Care Management No Pattie Robertson RN Note: Problem: Chronic Pain Goals: 1. Minimize further functional decline 2. Maximize quality of life 3. Control pain Strategies: - Activity/exercise program recommendation - Conservative stepwise pain medicine strategy with multi-disciplinary approach - Recommend healthy lifestyle strategies and compensatory methods as needed Medical Devices Implanted Type Area Surg Nurse Device Identifier Shelf Expiration Date Model / Serial / Lot [employer] Graft Bone Filler Cortical Cancellous Cyro Freezer Arthrocell 2.5cc Putty Abs-2008-11 - [id number] Implanted:Qty: 1 on 09/14/2023 by Pieter Dumont MD at [facility] Left: Foot [employer] 10/03/2025 ABS-0 2 / / [id number] Description: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 - will be tissue tracked on sunday [employer] Screw Bone Medline Unite L34mm Od3.5mm Nonsterile [id number] - [id number] Implanted:Qty: 1 on 09/14/2023 by Pieter Dumont MD at [facility] Left: Foot [employer] [id number] / / [employer] Screw Bone Medline Unite L38mm Od3.5mm Nonsterile [id number] - [id number] Implanted:Qty: 1 on 09/14/2023 by Pieter Dumont MD at [facility] Left: Foot [employer] [id number] / / Explanted Type Area Surg Nurse Device Identifier Shelf Expiration Date Model / Serial / Lot [employer] Viet .062in 9in Trocar Point One End Orthopedic Wire [id number] - [id number] Explanted:Qty: 2 on 09/14/2023 by Pieter Dumont MD at [facility] Left: Foot [employer] [id number] / / Procedures Procedure Name Priority [...] Bone mineral density was performed on a HoloUrban Compass Discovery Densitometer. Based on machine cross-calibration and [...] mineral density scan were prepared by Pallavi Guzman(Jeffrey) NAGI who is accredited by the International Society of Clinical Densitometry. The overall patient assessment and scan interpretation were performed by Fabi Costa MD who is certified by the International Society of Clinical Densitometry. [id number] Alcira Sun MD IMG DXA PROCEDURES Final Result from Last 3 Months or Most Recently Relevant to Health Maintenance Insurance [facility] MEDICARE ADVANTAGE [facility] MEDICARE Address: [place] [address] [facility] MEDICARE Address: [place] [id number] [facility] MEDICARE Address: [place] [id number] Care Teams Top Dyeing Machine Loader Relationship Specialty Start Date End Date Neelima Zaman MD PCP - General 09/25/17 Davie Mendoza MD Surgeon Ophthalmology 09/01/20
== END 2025-03-16 12:04 | disposition home or self-care (01) ==
LOC: CHSIMG 12:06
PROVIDERS: PCP Family Medicine; Visit Provider Family Medicine
DX: Z12.31 Encounter for screening mammogram for malignant neoplasm of breast (principal)
CPT/HCPCS: 77063; 77067

== ENCOUNTER 2025-09-21 01:53 | Day surgery (SDC) | payer MEDICARE, SELFPAY ==
[2025-09-02 09:34] VITALS: BMI 20.8
--- OUTSIDE RECORDS SUMMARY | 2025-09-21 01:55 | XMS_ITS | Encounter Summary ---
Author Organization [facility] Healthcare Address [address] [place] [address] Care Team Providers Care Strategic Partnership Specialist Name Role Phone Neelima Zaman MD Primary Care Provider + Davie Mendoza MD Unavailable [phone] Robert Robles MD Primary Care Provider Tammy Blount Unavailable [phone] Alcira Sun MD Unavailable [phone] Encounter Details Date Type Department Care Team (Late st Contact Info) Description 10/10/2021 Telephone [facility] [address] [place] [id number] Mily Kim, RN Social History Tobacco Use Types Packs/Day [...] on file 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 Gender Identity Not on file Sexual Orientation Not on file 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 file Not on file Not on file documented as of this encounter Functional Status * Question Answer Date of Assessment Author MAP (mmHg) 99 10/11/2021 12:40 PM Mily Hanks RN * Min Fall Risk Question Answer Date of Assessment Author History of Falling 0 10/11/2021 7:38 AM Mily Austin RN Secondary Diagnosis 0 10/11/2021 7:38 AM Mily Segura, 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 Monthly or less 10/11/2021 7:41 AM Mily Austin RN Q2: How many drinks containing alcohol do you have on a typical day when you are drinking? 1 or 2 10/11/2021 7:41 AM Bird Austin RN Q3: How often do you have six or more drinks on one occasion? Never 10/11/2021 7:41 AM Mily Austin RN * Integumentary Question Answer Date of Assessment Author Integumentary (WDL) WDL 10/11/2021 7:44 AM Mily Segura RN * ADL Screening Question Answer Date of Assessment Author Patient's Vision Adequate to Safely Complete Daily Activities Yes 10/11/2021 7:38 AM Mily Austin RN Patient's Judgement Adequate to Safely Complete Daily Activities Yes 10/11/2021 7:38 AM Mily Austin RN Patient's Memory Adequate to Safely Complete Daily Activities Yes 10/11/2021 7:38 AM Mily Austin RN Patient Able to Express Needs/Desires Yes 10/11/2021 7:38 AM Mily Austin RN documented as of this encounter Mental Status * Neuro (WDL) Answer Entry Date Author WDL 10/11/2021 7:44 AM Porter Austin RN documented in this encounter Plan of Treatment [...] documented as of this encounter Care Teams Strategic Partnership Specialist Relationship Specialty Start Date End Date Neelima Zaman MD PCP - General 09/25/17 05/11/25 Robert Robles MD [address] [address] PCP - General Family Medicine 05/12/25 Davie Mendoza MD Surgeon Ophthalmology 09/01/20 Tammy Blount PA [address] [place] [address] Physician Plumber Neurology 05/12/25 Alcira Sun MD [address] [address] Consulting Physician Endocrinology 05/12/25 documented as of this encounter
--- OUTSIDE RECORDS SUMMARY | 2025-09-21 01:55 | XMS_ITS | Clinical Summary ---
Author Organization [facility] Address [address] [place] [address] Care Team Providers Care Sybase Developer Name Role Phone Davie Mendoza MD Unavailable Robert Robles MD Primary Care Provider Tammy Blount Unavailable Alcira Sun MD Unavailable Allergies Active Allergy Reactions Criticality Noted Date Comments Codeine Headache,Nausea only Low Medications aloe vera 25 mg capsuleIndication s:constipation/nair pplement Take 25 mg by mouth every morning Active turmeric root extract 500 mg capsuleIndication s:supplement Take 2 tablets by mouth every morning Stopped 09/10 for DOS 09/14 Active UNABLE TO FIND Take 3 each by mouth diesel motor mechanic before breakfast Congaplex ; stopped 09/10 for surgery Active ferrous sulfate elixir 220 mg/5 mL (44 mg/5 mL of elemental iron)Indications: Iron Deficiency Anemia Take 5 mL (220 mg total) by mouth every morning Active cholecalciferol (Vitamin D3) 2000 unit capsuleIndication s:Vitamin D Deficiency Take 1 capsule (2,000 Units total) by mouth every morning Active indomethacin (INDOCIN) 25 mg capsuleIndication s:Intractable chronic migraine with aura and without status migrainosus 1-2 caps by mouth every 8 hrs as needed for migraine. Take with food. 180 capsule 1 03/17/20 24 Active UNABLE TO FIND Biost Made by Standard Process Calcifood Made by Standard Process Active Restasis 0.05 % ophthalmic emulsion INSTILL 1 DROP INTO BOTH EYES IN THE MORNING 90 mL 3 04/15/20 24 Active BUPROPION HCL ORAL Take by mouth Active naltrexone HCl (NALTREXONE ORAL) Take by mouth Active metFORMIN (GLUCOPHAGE) 500 mg tablet Take 1 tablet (500 mg total) by mouth daily Active ubrogepant (Ubrelvy) 100 mg tabletIndications :Intractable chronic migraine with aura and without status migrainosus Take 1 tablet (100 mg total) by mouth once as needed for migraine May repeat dose once in 2 hours if no relief. Do not exceed 2 doses in 24 hours. 30 tablet 1 12/18/19 25 026 Active atogepant (Qulipta) 60 mg tabletIndications :Intractable chronic migraine with aura and without status migrainosus TAKE 1 TABLET BY MOUTH DAILY 30 tablet 5 06/17/20 25 Active Synthroid 88 mcg tabletIndications :Postablative hypothyroidism TAKE 1 TABLET BY MOUTH EARLY IN THE MORNING BEFORE BREAKFAST 100 tablet 2 09/17/20 25 Active Synthroid 88 mcg tabletIndications :Postablative hypothyroidism TAKE 1 TABLET BY MOUTH EARLY IN THE MORNING BEFORE BREAKFAST 100 tablet 1 03/16/20 25 025 Discontinued Active Problems Problem Noted Date Diagnosed Date Pure hypercholesterolemia 05/13/2025 Assessment & Plan (05/13/2025 9:23 AM CDT): - new diagnosis, mild - borderline high - noted on lab work 04/2025 - low ASCVD risk score as shown below - will continue to monitor annually - has healthy weight and lifestyle Lab Results Component Value Date CHOL 218 (H) 05/12/2025 Lab Results Component Value Date HDL 66 05/12/2025 Lab Results Component Value Date LDLCALC 140 (H) 05/12/2025 Lab Results Component Value Date TRIG 66 05/12/2025 The 10-year ASCVD risk score (Geno DK, et al., 2019) is: 5.2% Values used to calculate the score: Age: 64 years Sex: Female Is Non- : No Diabetic: No Tobacco smoker: No Systolic Blood Pressure: 118 mmHg Is BP treated: No HDL Cholesterol: 66 mg/dL Total Cholesterol: 218 mg/dL Screen for colon cancer 05/13/2025 Assessment & Plan (05/13/2025 9:32 AM CDT): - Past due for screening colonoscopy by 2 years but has scheduled already for September 21, 2025. She has had 2 prior colonoscopies with normal findings. Saphenous nerve neuropathy, left 05/13/2025 Assessment & Plan (05/13/2025 9:27 AM CDT): - history of varicose veins of bilateral lower extremities and status post status post EVLT of her right great saphenous vein and right accessory vein , she has left lower extremity numbness which she was diagnosed with saphenous neuropathy - no pain associated with the numbness so not on any medications for it Dry eyes 05/12/2025 Assessment & Plan (05/12/2025 1:22 PM CDT): Experiencing dry eyes, managed with Restasis. History of eyelid surgery and double vision, previously misdiagnosed with myasthenia gravis, later corrected to eye muscle fatigue due to hard contact lens use. Family history of breast cancer in sister 2024 Assessment & Plan (05/13/2025 9:22 AM CDT): - hx of breast cancer in sister - She is up-to-date with breast cancer screening mammography Chronic constipation 05/12/2025 Assessment & Plan (05/12/2025 1:22 PM CDT): Chronic constipation managed effectively with daily aloe pills. - Continue aloe pills daily Left foot pain 05/12/2025 Assessment & Plan (05/12/2025 1:21 PM CDT): Chronic left foot pain and numbness following a Lisfranc fracture and surgery. Numbness attributed to saphenous nerve neuropathy. Pain management was consulted, but the primary issue is numbness, not pain. No effective treatment for numbness identified. Preventative health care 05/12/2025 Assessment & Plan (05/13/2025 9:24 AM CDT): - New or chronic worsening conditions: hypercholesterolemia - Mental health: no significant psychiatric/mental health conditions affecting her day to day functioning - Dental health: Recommend regular dental care and cleaning. Discussed importance of regular tooth brushing, flossing, and dental visits. - Nutrition: Recommend moderation in sodium/caffeine intake, saturated fat and cholesterol, caloric balance, sufficient intake of fresh fruits, vegetables - Exercise: Recommend to exercise at least 30 minutes moderate to vigorous exercise most days of the week. (minimum 150 minutes weekly) - Immunizations: Age and sex appropriate immunizations reviewed and offered - Cervical Cancer screening: not indicated - Breast Cancer screening: Up to date - Colon cancer screening: past due, scheduled already for colonoscopy - Lung cancer screening: not indicated - Bone desnity/osteoporosis screening:Up to date, has known osteoporosis Age-related osteoporosis wit hout current pathological fracture 04/03/2024 Assessment & Plan (05/12/2025 1:25 PM CDT): Osteoporosis with poor bone density, previously treated with oral bisphosphonates causing severe side effects - nausea and muscle pain. Currently on Reclast started initially on 04/2024 - Continue Reclast yearly, follows and managed by endocrinology - Continue vitamin D supplementation No results found for: 25HYDROVITD Lab Results Component Value Date TSH 0.51 03/19/2025 Lab Results Component Value Date PTH 61 03/19/2025 CALCIUM 9.5 03/19/2025 CAION 5.31 (H) 09/05/2017 PHOS 2.8 03/19/2025 Nuclear sclerotic cataract of both eyes 01/19/20 Assessment & Plan (05/04/2023 11:02 AM CDT): Stable. Observe. Assessment & Plan (01/18/2023 8:38 AM CDT): Mild. Stable. Observe. PVD (posterior vitreous detachment), right eye 0 11/22/2022 Assessment & Plan (05/04/2023 11:02 AM CDT): Repeat DFE annually. Assessment & Plan (01/18/2023 8:38 AM CDT): No retinal holes/tears/RDs x 360 on FILTER TIP INSPECTOR today. The signs and symptoms of retinal detachment were reviewed. Advised urgent evaluation with any onset. F/u annually., sooner prn. Assessment & Plan (11/22/2022 3:31 PM BEAUTY SALES ADVISOR): New PVD OD, symptoms started 1 week ago. No retinal holes/tears/RDs x 360 on FILTER TIP INSPECTOR today. The signs and symptoms of retinal detachment were reviewed. Advised urgent evaluation with any onset. F/u DFE in 6-8 weeks. Diagnostic refraction prior to DFE that day. 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 Observe. Assessment & Plan (04/27/2022 3:10 PM CDT): Stable. Observe. Ptosis of right eyelid 08/04/2019 Overview (05/13/2025): status post left upper lid internal ptosis repair in 2019 Varicose veins of bilateral lower extremities wi th pain 06/24/2019 Overview (05/13/2025): status post EVLT of her right great saphenous vein and right accessory vein Assessment & Plan (09/19/2019 1:56 PM BEAUTY SALES ADVISOR): Impression: Patient continues do well status post [...] exercise Postablative hypothyroidism 10/30/2018 Assessment & Plan (05/12/2025 1:24 PM CDT): Diagnosed with hyperthyroidism in 2015, treated with methimazole and radioactive iodine in 2018, resulting in hypothyroidism. Currently managed with levothyroxine. - Continue levothyroxine 88 mcg daily - Continue current management and follow up with the endocrinology She was diagnosed with Graves' hyperthyroidism in 2015 and treated with methimazole for over 1 year. She received 21 mCi ESCOBEDO in 05/2018 Lab Results Component Value Date TSH 0.51 03/19/2025 Assessment & Plan (03/28/2023 4:54 PM CDT): Reassess TSH today very slightly low but has previously been normal on same dose. Repeat in 3 months. Assessment & Plan (09/17/2022 10:40 AM BEAUTY SALES ADVISOR): Continue Levothyroxine 88 mcg. Recheck TSH in [...] daily. Assessment & Plan (10/30/2018 11:04 PM BEAUTY SALES ADVISOR): She is on 75 mcg 5 days per week (when started on daily dosing, she was hyperthyroid). She is now frankly hypothyroid. Will have her start taking levothyroxine 75 mcg daily and recheck levels in 6 weeks. Intractable chronic migraine with aura and without status migrainosus 10/30/2018 Overview (05/13/2025): Managed by Neurology Assessment & Plan (05/12/2025 1:20 PM CDT): Chronic migraine headaches since second grade, significantly impacting quality of life. Previous treatments include Aimovig, Botox, and various medications with limited long-term success. Current management includes Ubrelvy, Qulipta, and indomethacin as needed. Visual migraines occur occasionally, often preceding pain migraines. She has an aneurysm, evaluated and deemed not dangerous. She is under the care of a PA for migraine management, who is knowledgeable about new treatments. She prefers to avoid further invasive procedures due to past complications. - Continue Ubrelvy as needed - Continue Qulipta daily - Continue indomethacin as needed - Follow up with PA for migraine management Assessment & Plan (10/30/2018 10:58 PM BEAUTY SALES ADVISOR): She notes that she has had headaches for many years, but feels they are now more frequent. They had improved after sinus surgery in the past. There are some associated migraine symptoms though worsening while recumbent is not typical of this. She does not have significant risk factors for sleep apnea. I have referred her to Dr. Ernst for further evaluation. Hyperparathyroidism 09/06/2017 Assessment & Plan (03/28/2023 4:54 PM CDT): Reassess PTH, calcium and 25 OHD level today. PTH elevated, calcium upper normal, phosphorus slightly low. Possible early normocalcemic primary hyperparathyroidism. Does not currently meet surgical criteria. Assessment & Plan (09/17/2022 10:40 AM BEAUTY SALES ADVISOR): Reassess calcium, PTH. Assessment & Plan (04/26/2018 10:12 PM CDT): Her renal function and 25OHD levels are WNL. Her total calcium is normal, but ionized is elevated. 24 hour urine calcium at the upper limit of normal. Will monitor serum calcium and confirm osteoporosis. Resolved Problems Problem Noted Date Diagnosed Date Resolved Date Dislocation of tarsometatars al joint of left foot 09/10/2023 05/12/2025 Weight gain 09/17/2022 03/25/2025 Assessment & Plan (09/17/2022 10:41 AM BEAUTY SALES ADVISOR): Assess TSH as above. Check 1 mg ONDST to r/o Kirsten's. Recommend calorie tracking - aim for 1200 kcal per day. Ptosis of eyelid, left 07/30/202005/12 Overview (07/30/2020): Added automatically from request for surgery [id number] Peripheral visual field defect of left eye 07/30/2020 05/12/2025 Overview (07/30/2020): Added automatically from request for surgery [id number] Ptosis of left eyelid 07/29/20202022 Assessment & Plan (04/27/2022 3:10 PM CDT): S/p ptosis repair by Dr. Mendoza. Observe. Refraction disorder 07/15/2020 05/12/20 25 Assessment & Plan (07/15/2020 5:32 PM CDT): Release updated glasses Rx Diplopia 01/05/2020 05/12/2025 Assessment & Plan (05/04/2023 11:02 AM CDT): [...] refer to Dr. Mendoza for further evaluation. Graves disease 04/26/2018 05/12/2025 Hyperthyroidism 04/26/2018 10/30/2018 Assessment & Plan (04/26/2018 [...] assess for hypothyroidism and then begin LT4. Low bone mass 09/05/2017 05/12/2025 Assessment & Plan (03/28/2023 4:42 PM CDT): Will repeat DEXA next year to determine ticket dispenser changer time. If need to restart bisphosphonate, would recommend reclast. Assessment & Plan (09/17/2022 10:41 AM BEAUTY SALES ADVISOR): Repeat DXA. Assessment & Plan (07/07/2020 3:47 [...] for treatment. Will treat hyperthyroidism and hyperparathyroidism. Immunizations Immunization Administration Dates Next Due Influenza, Quadrivalent, Olivia l Culture-based MDCK, Preservative Free, Antibiotic Free, Intramuscular 07/05/2022 Influenza, Quadrivalent, Hig h Dose, Preservative Free, Intrr 06/20/2023 Influenza, Quadrivalent, Spl it, Preservative Free, Intramuscular 06/14/2020,08/04/2019,08/01/2018 Influenza, Trivalent, Adjuva nted, Intramuscular 07/04/2024 Influenza, Trivalent, IM (MDV) 07/05/2021 Influenza, Trivalent, Preser vative Free, Intramuscular 09/05/2017,09/11/2016 Influenza, Unspecified 08/04/2019 Pneumococcal Conjugate Pcv20 06/20/2023 RSV Vaccine, Pref, Recombina nt, Subunit, Adjuvanted, PF, IM (Arexvy) 06/20/2023 ZOSTER Recombinant 06/13/2019,04/04/2019 Surgical History Surgery Date [...] Left Left ptosis repair ANGIO SELECTIVE CAROTID COMPUTER SUPPORT SPECIALIST LEFT 10/11/2021 Left DILATION AND CURETTAGE OF UTERUS 10/29/2001 - 10/28/2002 multiple COLONOSCOPY 2007 & 2018 CERVICAL CONIZATION W/ LASER mid Medical History [...] Sister 1 Fatuma Autoimmune disease Sister 2 Ottoniel Cancer Sister 2 Ottoniel Family history of malignant neoplasm - father:leukemia; [...] more drinks on one occasion? Never 07/08/2024 PHQ-2 Answer Date Recorded PHQ-2 Total Score (If total score is 3 or more points, staff should administer the PHQ-9) 0 05/12/2025 Hunger Vital Sign Answer Date Recorded Within the past 12 months, y ou worried that your food would run out before you got the money to buy more. Never true 05/29/20 25 Within the past 12 months, t he food you bought just didn't last and you didn't have money to get more. Never true 05/29/2025 Personal Safety Answer Date Recorded Have you ever been in or are you currently in a harmful physical or emotional relationship or is someone making you feel afraid or unsafe? 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 on file Not on file Not on file Last Filed Vital Signs Vital Sign Reading Time Taken Comments Blood Pressure 114/75 05/29/2025 2:00 PM CDT Pulse 68 05/29/2025 2:00 PM CDT Temperature 36.2 C (97.2 F) 05/29/2025 12:53 PM CDT Respiratory Rate 16 05/29/2025 2:00 PM CDT Oxygen Saturation 100% 05/29/2025 2:00 PM CDT Inhaled Oxygen Concentration - - Weight 69 kg (152 lb 1.6 oz) 05/29/2025 12:53 PM CDT Height 177.8 cm (5' 10) 05/12/2025 8:30 AM CDT Body Mass Index 21.82 05/12/2025 8:30 AM CDT Plan of Treatment Health Maintenance Due Date Last Done Comments Colon Cancer Screening-Colonoscopy 1960 DTaP/Tdap/Td Vaccine (1 - Tdap) 1969 Covid-19 Vaccine (7 - 2024-2 6 season) 2025 07/04/2024, 06/20/2023, 07/05/2022, Additional history exists Influenza Vaccine (#1) 2025 , 06/20/2023, 07/05/2022, Additional history exists Breast Cancer Screening-Mammogram 03/16/2026 025 Osteoporosis Screening-Bone Density Scan 03/18/2026 03/18/2024, 10/02/2022 Depression Screening 05/12/2026 05/12/2025 Fall Risk Assessment 05/12/2026 05/12/2025, 09/14/2023, 10/03/2021 Well Visit 65+ 05/12/2026 05/12/2025 Zoster Vaccine Completed 06/13/2019, 04/04/2019 Pneumococcal vaccine 65+ Completed 06/20/2023 Hepatitis B Screening Completed 05/12/2025 Hepatitis C Screening Completed 05/12/2025 Goals Goal Patient Goal Type Associated Problems Recent Progress Patient-Stated? Author CCM Chronic Pain Care Plan Chronic Care Management Pattie Watters, RN Note: Problem: Chronic Pain Goals: 1. Minimize further functional decline 2. Maximize quality of life 3. Control pain Strategies: - Activity/exercise program recommendation - Conservative stepwise pain medicine strategy with multi-disciplinary approach - Recommend healthy lifestyle strategies and compensatory methods as needed Medical Devices Implanted Type Area Training And Development Manager Device Identifier Shelf Expiration Date Model / Serial / Lot [employer] Graft Bone Filler Cortical Cancellous Cyro Freezer Arthrocell 2.5cc Putty Abs-2008-11 - [id number] Implanted:Qty: 1 on 09/14/2023 by Pieter Dumont Jr., MD at [facility] [employer] Left: Foot [employer] 10/03/2025 ABS- 2 / / [id number] 1866-22 Description:Nurse feed manager ou t of office - will be tissue tracked on sunday [employer] Screw Bone Medline Unite L34mm Od3.5mm Nonsterile [id number] - [id number] Implanted:Qty: 1 on 09/14/2023 by Pieter Dumont Jr., MD at [facility] [employer] Left: Foot [employer] [id number] / / Medline [employer] Screw Bone Medline Unite L38mm Od3.5mm Nonsterile [id number] - [id number] Implanted:Qty: 1 on 09/14/2023 by Pieter Dumont Jr., MD at [facility] Left: Foot [employer] [id number] / / Explanted Type Area Training And Development Manager Device Identifier Shelf Expiration Date Model / Serial / Lot Microaire Surgical Instruments Viet .062in 9in Trocar Point One End Orthopedic Wire [id number] - [id number] Explanted:Qty: 2 on 09/14/2023 by Pieter Dumont Jr., MD at [facility] Left: Foot [employer] [id number] S / / Procedures Procedure Name Priority Date/Time Associated Diagnosis Comments HEPATITIS C ANTIBODY Routine 05/12/2025 9:33 AM CDT Encounter for hepatitis C screening test for low risk patient HM MAMMOGRAPHY Routine 03/16/2025 DEXA AXIAL AND FOREARM BONE DENSITY SCAN Schedule Routine, Read Routine (OP Routine) 03/18/2024 11:34 AM CDT Hyperparathyroidi sm from Last 3 Months or Most Recently Relevant to Health Maintenance Results * Hepatitis C antibody Blood (05/12/2025 9:33 AM CDT) Hep C Ab Nonreactive Nonreactive Comment: Interpretive Data Nonreactive: Antibodies to HCV not detected. Does NOT exclude the possibility of recent exposure to HCV. Equivocal: Equivocal for HCV antibodies. Supplemental molecular testing will be automatically performed to determine infection status in accordance with current CDC screening recommendations. Reactive: Positive for HCV antibodies. This may represent current or past HCV infection. Supplemental molecular testing will be automatically performed to determine current infection status in accordance with current CDC screening recommendations. Interpretive data was last revised on 2020. Blood 05/12/2025 9:33 AM CDT 05/12/2025 2:20 PM CDT Robert Robles MD LAB MICROBIOLOGY - [facility] ORDERABLES Final Result [facility] [address] Department [place] [address] * MAMMOGRAPHY (03/16/2025) [facility] Provider HEALTH MAINTENANCE Final Result * Dexa Axial and Forearm Bone Density Scan (03/18/2024 11:34 AM CDT) Anatomical Region Laterality Modality Wrist, Body N/A Radiographic Claribel ging Narrative 03/18/2024 4:32 PM CDT Patient Name: aPttie Horton Date of : 1960 Date of scan: 03/18/2024 Bone mineral density was performed on a [employer] Discovery Densitometer. Based on machine cross-calibration and [...] by the International Society of Clinical Densitometry. [id number] us Alcira Sun MD IMG DXA PROCEDURES Final Result from Last 3 Months or Most Recently Relevant to Health Maintenance Insurance UHC MEDICARE ADVANTAGE Member Subscriber Plan / Payer (Ef fective 2024-Present) Name:Pattie Horton Relation to Subscriber:Self Name:Pattie Horton Payer ID:[id number] (NAIC) Type:[facility] MEDIC[facility] Address: [place] [id number] [place] [id number] UHC MEDICARE ADVANTAGE Care Teams Sybase Developer Relationship Specialty Start Date End Date Robert Robles MD [address] [address] PCP - General Family Medicine 05/12/25 Davie Mendoza MD Surgeon Ophthalmology 09/01/20 Tammy Blount PA [address] [place], [place] [id number] Physician Sail Maker Neurology 05/12/25 Alcira Sun MD [address] [id number] Consulting Physician Endocrinology 05/12/25
--- OUTSIDE RECORDS SUMMARY | 2025-09-21 01:55 | XMS_ITS | Clinical Summary ---
Author Organization [facility] Address [address] [place] [id number] Care Team Providers Care Gun Club Manager Name Role Phone None, Provider MD Primary [...] 2:35 PM CDT Height 180.3 cm (5' 11) 08/31/2023 2:35 PM CDT Body Mass Index 25.1 08/31/2023 2:35 PM CDT Plan of Treatment Health Maintenance Due Date Last Done Comments Colorectal Cancer Screening Colonoscopy (10 Years) 1960 Hepatitis C 1976 DTaP, Tdap and Td Vaccines (1 - Tdap) 1977 Mammogram Screening 1998 Annual Medicare Wellness Visit 2023 Dexa Scan (General) 2023 COVID-19 Vaccine ( season) 2025 06/20/2023, 07/05/2022, 03/14/2022, Additional history exists Influenza Adult (#1) 2025 07/05/2022, 07/05/2021, 06/14/2020, Additional history exists Zoster Vaccines Completed 06/13/2019, 04/04/2019 Pneumococcal Vaccine: 50+ Years Completed 06/20/2023 RSV Immunization or 60+ Years Completed 06/20/2023 Hepatitis A Vaccines Aged Out No long er eligible based on patient's age to complete this topic Meningococcal B Vaccine Aged Out No l onger eligible based on patient's age to complete this topic Meningococcal Vaccine Aged Out No mikel ander eligible based on patient's age to complete this topic RSV Immunizations Under 20 Months Aged Out No longer eligible based on patient's age to complete this topic Insurance MEDICARE AETNA Care Teams Gun Club Manager Relationship Specialty Start Date End Date None, Provider, PCP - General UNKNOWN PHYSICIAN SPECIALTY 08/31/23
--- OUTSIDE RECORDS SUMMARY | 2025-09-21 01:55 | XMS_ITS | Clinical Summary ---
Author Organization [facility] Address [address] [place] [address] Care Team Providers Care Abrasive Worker Name Role Phone Neelima Zaman MD Primary Care Provider [phone] Source Comments [facility],non-owned Affiliates and Associated Physician Practices is amultiple site organization consisting of ambulatory clinics and hospital sitesin [place], [place], [place] and [place]. This disclosure is being madepursuant to the Care Everywhere program and may not contain all information available regarding this patient. Last updated 18.[facility] Allergies No known active allergies Medications * [...] vitamin D, ergocalciferol , (DRISDOL) 1.25 MG (58211 UT) capsule TK ONE C PO ONCE [...] on file Legal Sex Female 7:35 PM SENIOR PROJECT MANAGER Gender Identity Not on file Sexual Orientation Not on file Last Filed Vital Signs Vital Sign Reading Time Taken Comments Blood Pressure 118/69 12/23/2019 3:06 PM SENIOR PROJECT MANAGER Pulse 64 12/23/2019 3:06 PM SENIOR PROJECT MANAGER Temperature - - Respiratory Rate - - Oxygen Saturation 96% 12/23/2019 3:06 PM SENIOR PROJECT MANAGER Inhaled Oxygen Concentration - - Weight 79.4 kg (175 lb 1.9 oz) 12/23/2019 3:06 P M SENIOR PROJECT MANAGER Height 177.8 cm (5' 10) 12/23/2019 3:06 PM SENIOR PROJECT MANAGER Body Mass Index 25.13 12/23/2019 3:06 PM SENIOR PROJECT MANAGER Plan of Treatment Health Maintenance Due Date [...] - PCV) 2008 SCREENING FOR DIABETES 12/23/2019 DEPRESSION SCREENING 10/29/2024 COVID-19 VACCINE (1 - 2024- season) 2025 INFLUENZA VACCINE (#1) 2025 , 08/04/2019, 08/01/2018, Additional history exists Respiratory Syncytial [...] patient's age to complete this topic Insurance JUAN ANTHEM Care Teams Abrasive Worker Relationship Specialty Start Date End Date Neelima Zaman MD [address] [place] [id number] PCP - General 12/23/19
--- OUTSIDE RECORDS SUMMARY | 2025-09-21 01:55 | XMS_ITS | Encounter Summary ---
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 She will see Dr Maharaj for EMG Vy Jolley MD OPHYSICAL ENGINEER documented in this encounter Plan of Treatment Not on file documented as of this encounter Visit Diagnoses Not on filedocumented in this encounter Care Teams Radiology Orderly Relationship Specialty Start Date End Date Neelima Zaman MD [address] [place] [phone] PCP - General 12/23/19 documented as of this encounter
--- OUTSIDE RECORDS SUMMARY | 2025-09-21 01:56 | XMS_ITS | Encounter Summary ---
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
--- NOTE | 2025-09-21 12:05 | PM.IMHP ---
H&P: HPI History of Present Illness Date/Time: 09/21/25 12:05 Chief Complaint: Screening colonoscopy Narrative: This is the patient's 3rd screening colonoscopy. There are no GI symptoms and there is no family history of colorectal cancer. 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 Family History Family History Sibling Family history of malignant neoplasm of breast in first degree relative Other Family history of malignant neoplasm of breast Family history of migraine headaches Family history of osteoporosis Social History Social History (Updated 03/12/24 @ 14:04 by Karen Barriga MA) Smoking status: Never smoker Alcohol intake: never Substance use: never Substance use type: does not use Do You Feel Safe in your Home?: Yes Lack of Transportation: No Lack of Food: Never True Concerned About Future Housing: No Difficulty Paying Gas/Electric Bills: No Difficulty Paying for Meds: No Currently Unemployed: No Education: Bachelor's Degree Difficulty w/ Childcare or Family Care: No Living arrangements: with family Spiritual care concerns: No Meds Home Medications and Allergies Home Medications ?Medication ?Instructions ?Recorded ?Confirmed ?Type levothyroxine 88 mcg capsule 88 mcg PO DAILY 03/11/20 09/21/25 History cyclosporine 0.05 % eye drops in a 1 drop ophthalmic (eye) Q12H 04/15/20 09/02/25 History dropperette (Restasis) atogepant 60 mg tablet (Qulipta) 60 mg PO DAILY 09/05/23 09/02/25 History indomethacin 25 mg capsule 75 mg PO QHS 09/05/23 09/02/25 History ubrogepant 100 mg tablet (Ubrelvy) 100 mg PO ONCE 09/05/23 09/02/25 History bimatoprost 0.03 % drops with 1 drp topical .COMPLEX #3 mL 07/31/24 09/02/25 Rx applicator, eyelash base (Latisse) Allergies Allergy/AdvReac Type Severity Reaction Status Date / Time oxytocin Allergy Severe OVER Verified 09/02/25 09:32 REACTION- CAUSED CONTRACTION >7MIN alendronate sodium Allergy Unknown abdominal Verified 09/02/25 09:32 pain.severe headache codeine Allergy Unknown HEADACHE Verified 09/02/25 09:32 ibandronate sodium (Boniva) Allergy Unknown muscle Verified 09/02/25 09:32 cramping sulfamethizole Allergy Unknown arthralgia,flu Verified 09/02/25 09:32 like Exam Const: General: cooperative and healthy appearing Resp: Effort & Inspection: normal respiratory effort and able to speak in complete sentences Auscultation: clear to auscultation bilaterally Cardio: Rate: regular rate Rhythm: regular rhythm GI: Inspection: normal to inspection GI Palp: No No hepatosplenomegaly present Auscultation: normal bowel sounds Rectal Exam: deferred Skin: General skin exam: normal color Psych: Appearance: grossly normal Mental Status: mental status grossly normal Assessment and Plan Assessment and plan (1) Encounter for screening colonoscopy: Code(s): Z12.11 - Encounter for screening for malignant neoplasm of colon Status: Acute Assessment and Plan: The patient is deemed a good candidate for the procedure. Consent signed. Will proceed.
[2025-09-21] MEDS: LACTATED RINGERS 1,000 ML 150 ML IV CONT (12:07)
[2025-09-21 12:08] VITALS: BP 106/59; PULSE 62; RESP 18; TEMP 36.1; O2SAT 100
--- NOTE | 2025-09-21 12:09 | WPDANESEPPF ---
Anes - Initial Pre Proc Eval Procedure: Operation Date: 09/21/25 13:00 Proposed Procedures p Screening Colonoscopy - Anthony Echols MD Date/Time: 09/21/25 12:09 Surgeon: Anthony Echols MD Pre Op Diagnosis: Encounter for screening for malignant neoplasm of Patient Data Age: 65 Gender: F Height: 1.78 m Weight: 66 kg Allergies Allergy/AdvReac Type Severity Reaction Status Date / Time oxytocin Allergy Severe OVER Verified 09/02/25 09:32 REACTION- CAUSED CONTRACTION >7MIN alendronate sodium Allergy Unknown abdominal Verified 09/02/25 09:32 pain.severe headache codeine Allergy Unknown HEADACHE Verified 09/02/25 09:32 ibandronate sodium (Boniva) Allergy Unknown muscle Verified 09/02/25 09:32 cramping sulfamethizole Allergy Unknown arthralgia,flu Verified 09/02/25 09:32 like Home Medications ?Medication ?Instructions ?Recorded ?Confirmed ?Type levothyroxine 88 mcg capsule 88 mcg PO DAILY 03/11/20 09/21/25 History cyclosporine 0.05 % eye drops in a 1 drop ophthalmic (eye) Q12H 04/15/20 09/02/25 History dropperette (Restasis) atogepant 60 mg tablet (Qulipta) 60 mg PO DAILY 09/05/23 09/02/25 History indomethacin 25 mg capsule 75 mg PO QHS 09/05/23 09/02/25 History ubrogepant 100 mg tablet (Ubrelvy) 100 mg PO ONCE 09/05/23 09/02/25 History bimatoprost 0.03 % drops with 1 drp topical .COMPLEX #3 mL 07/31/24 09/02/25 Rx applicator, eyelash base (Latisse) Patient hx anesthesia problems: none Family hx anesthesia problems: none Results Review: All pre-operative results and documents have been reviewed as part of the pre-operative evaluation. 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 Family History Family History Sibling Family history of malignant neoplasm of breast in first degree relative Other Family history of malignant neoplasm of breast Family history of migraine headaches Family history of osteoporosis Social History Social History Smoking status: Never smoker Alcohol intake: never Substance use: never Substance use type: does not use Do You Feel Safe in your Home?: Yes Lack of Transportation: No Lack of Food: Never True Concerned About Future Housing: No Difficulty Paying Gas/Electric Bills: No Difficulty Paying for Meds: No Currently Unemployed: No Education: Bachelor's Degree Difficulty w/ Childcare or Family Care: No Living arrangements: with family Spiritual care concerns: No Anes - Eval Final PreProcedure Day of Procedure 09/21/25 12:09 Patient weight: normal Lungs: normal air movement Airway: Mallampati scale class 1 Neurological: alert and oriented Last oral intake: >/= 8 hours ASA classification: I Emergent: no Anesthetic plan: proceed Anesthesia type and monitoring: general GIVS and standard monitoring Results Review: All pre-operative results and documents have been reviewed as part of the pre-operative evaluation. Hypothyroidism, active w swimming 0.5 mi/day, no cp or sob. Informed Consent: The patient's anesthetic plan and its attendant risks and benefits were discussed with the patient/family/POA. Questions were solicited and answers provided to the satisfaction of the patient/family/POA.
--- NOTE | 2025-09-21 12:34 | S_PTH ---
PATIENT: Pattie Horton LOC: [facility] U#:[id number] AGE/SX: 65/F ROOM: RE09/21/[address]: Anthony Echols MD : 1960 BED: DIS: 09/21/2025 SPEC #: [id number] RECD: 09/21/25 13:24 STATUS: KATE REQ #: [id number] MARY: 09/21/25 12:[address]: Anthony Echols DEPT: [facility] Surgical RECD BY: Graciela Bolden ENTERED: 09/21/25 13:25 SP TYPE: Surgical OTHR DR: Robert RoblesMD Tissues: A - Colon Polypectomy Procedures: Hematoxylin and Eosin Stain Gross and Microscopic Level 4
[2025-09-21 12:38] VITALS: BP 100/64; PULSE 58; RESP 15; O2SAT 100
[2025-09-21 12:48] VITALS: BP 102/68; PULSE 62; RESP 21; O2SAT 100
[2025-09-21 12:58] VITALS: BP 132/79; PULSE 66; RESP 17; O2SAT 100
== END 2025-09-21 13:08 | disposition home or self-care (01) ==
PROVIDERS: PCP Family Medicine; Visit Provider Internal Medicine Gastroenterology
PROC: 0DJD8ZZ Inspection of Lower Intestinal Tract, Via Natural or Artificial Opening Endoscopic (ICD-10-PCS; CPT 45378; principal; 2025-09-21 13:00)
DX: Z12.11 Encounter for screening for malignant neoplasm of colon (principal); K63.5 Polyp of colon; K63.89 Other specified diseases of intestine
CPT/HCPCS: 45385; 88305; J2003; J2704; J7120